=== PATIENT | female | born 1980 | race Caucasian/White ===

== ENCOUNTER 2016-12-25 09:44 | Emergency (ER) | payer MEDICAID, OTHER ==
[~2016-12-25 09:44] MED LIST: ZOFR4TAB3 SL
[2016-12-25 09:57] VITALS: BP 135/85; PULSE 98; RESP 18; TEMP 98; O2SAT 99
[2016-12-25] MEDS ORDERED: LIDOCAINE HCL 1% 50 ML VIAL INFIL ONE (10:15)
[2016-12-25] MEDS ORDERED: CEPH-460 PO (10:44)
--- NOTE | 2016-12-25 10:44 | PD ---
HPI Chief Complaint: Skin Problem Time Seen by Provider: 10:05 Travel History International Travel<30 days: No Contact w/Intl Traveler<30days: No Traveled to known affect area: No History of Present Illness HPI 36-year-old female here for evaluation of right great toe ingrown toenail. The patient reports that she has had pain from this ingrown toenail for the last 8 days. She has had ingrown toenails in the past, however this has been the most painful. She has been soaking the toe and soap and water. Pain is moderate, constant, worse with movement and palpation. No fevers or chills. PFSH Past Medical History Diminished Hearing: No Headaches: Yes Immunizations Current: Yes ?: Not Past Surgical History Section: Yes Social History Alcohol Use: Yes (WEEKENDS) Tobacco Use: No Substance Use: No Allergies-Medications (Allergen,Severity, Reaction): Coded Allergies: amoxicillin (Unverified Allergy, Intermediate, HIVES, 12/25/16) Reported Meds & Prescriptions Reported Meds & Active Scripts Active No Active Prescriptions or Reported Medications Review of Systems Except as stated in HPI: all other systems reviewed are Neg Physical Exam Narrative GENERAL: Well-developed, well-nourished, comfortable, no apparent distress. CARDIOVASCULAR: Regular rate and rhythm. Bilateral dorsalis pedis pulses are brisk and equal. RESPIRATORY: No accessory muscle use. MUSCULOSKELETAL: Right great toe with medial aspect with erythema and warmth, no red streaks. Normal capillary refill in right great toe. NEUROLOGICAL: Awake and alert. No obvious cranial nerve deficits. Motor grossly within normal limits. Normal speech. PSYCHIATRIC: Appropriate mood and affect; insight and judgment normal. Data Data Last Documented VS Vital Signs Date Time Temp Pulse Resp B/P (MAP) Pulse Ox O2 Delivery O2 Flow Rate FiO2 12/25/16 09:57 98.0 98 18 135/85 (102) 99 Orders Orders Lidocaine 1% Inj (50 Ml) (Xylocaine 1% I (12/25/16 10:15) [facility] Medical Decision Making Medical Screen Exam Complete: Yes Emergency Medical Condition: Yes Differential Diagnosis Ingrown toenail, paronychia, cellulitis, Narrative Course Patient has right great toe with medial encroachment on the skin with overlying cellulitis. Right great toe digital block was performed, and medial aspect of this nail was removed. See procedure note. Patient will be started on Keflex. She was encouraged to follow up with podiatry this week. She was informed on when to return to the emergency department. She verbalizes understanding and agreement with plan. Procedures Procedure Narrative Right great toe digital block/ingrown toenail removal: Base of toe was prepped with ChloraPrep. 2 cc of 1% lidocaine was used for digital block. After digital block was performed, medial aspect of right great toe was removed from skin. A small amount of purulence was expressed. Tolerated well. No complications. Diagnosis Primary Impression: Ingrown right big toenail Additional Impression: Paronychia Referrals: Jody Davis DPM 3 days Additional Instructions: Follow-up with manager hardware Dr. Davis this week. Return to the emergency department for worsening symptoms or any other concerns. Scripts Cephalexin (Keflex) 500 Mg Cap 500 MG PO Q8H for Infection, #30 CAP 0 Refills Prov: Tayo Wood MD 12/25/16 Disposition: 01 DISCHARGE HOME Condition: Stable Tayo Wood MD Dec 25, 2016 10:44
== END 2016-12-25 10:59 | disposition home or self-care (01) ==
LOC: PHEFT 09:44
DX: L60.0 Ingrowing nail (principal)
CPT/HCPCS: 11765